=== PATIENT | female | born 1960 | race Caucasian/White ===

== ENCOUNTER → 2021-07-28 | Outpatient (CLI) | payer OTHER ==
--- NOTE | 2021-07-28 15:15 | 2DMMODE ---
[facility] [place] [address] 2 D/M-MODE ECHOCARDIOGRAM Name: SANJIV ARNETT Room #: REG GUILLE Sarmiento.#: [id number] Admission: 07/28/21 Attend Phys: Mike Herrera MD Discharge: Date of : 64 Report #: [id number] THIS REPORT FOR: cc: Mike Herrera MD, Matthew B. MD Santiago, Patrick MD [facility] ~ APPROVED REPORT Study performed: 07/28/2021 14:39:42 EXAM: Comprehensive 2D, Doppler, and color-flow Echocardiogram Patient Location: Out-Patient Status: routine BSA: 1.67 HR: 66 bpm BP: 120/74 mmHg Rhythm: NSR Other Information Study Quality: Good Indications Mixed hyperlipidemia. 2D Dimensions RVDd: 27.42 mm IVSd: 7.02 (7-11mm) LVOT Diam: 20.02 (18-24mm) LVDd: 51.50 mm PWd: 6.20 (7-11mm) Ascending Ao: 30.69 (22-36mm) LVDs: 35.49 (25-40mm) Left Atrium: 32.03 (27-40mm) Aortic Root: 32.76 mm Volumes Left Atrial Volume (Systole) Single Plane 4CH: 23.75 mL Single Plane 2CH: 32.56 mL LA ESV Index: 18.00 mL/m2 Aortic Valve AoV Peak Aroldo.: 1.16 m/s AO Peak Gr.: 5.41 mmHg LVOT Max P.42 mmHg LVOT Max V: 1.16 m/s DARNELL Vmax: 3.15 cm2 [facility] [address] [place] [address] 2 D/M-MODE ECHOCARDIOGRAM Name: SANJIV ARNETT Room #: REG CL [facility]#: [id number] Admission: 07/28/21 Attend Phys: Mike Herrera, Discharge: Date of : 64 Report #: [id number] Mitral Valve E/A Ratio: 0.8 MV Decel. Time: 320.84 ms MV E Max Aroldo.: 0.61 m/s MV A Aroldo.: 0.74 m/s MV PHT: 93.04 ms IVRT: 117.65 ms Pulmonary Valve PV Peak Aroldo.: 0.86 m/s PV Peak Gr.: 2.97 mmHg Tricuspid Valve TR Peak Aroldo.: 1.72 m/s RAP Estimate: 5.00 mmHg TR Peak Gr.: 12.00 mmHg PA Pressure: 17.00 mmHg Left Ventricle The left ventricle is normal size. There is normal LV segmental wall motion. There is normal left ventricular wall thickness. Left ventricular systolic function is normal. LVEF is 60%. Mild diastolic dysfunction is present (impaired relaxation pattern). Right Ventricle The right ventricle is normal size. The right ventricular systolic function is normal. Atria The left atrium size is normal. The right atrium size is normal. Aortic Valve The aortic valve is normal in structure. No aortic regurgitation is present. There is no aortic valvular stenosis. Mitral Valve The mitral valve is normal in structure. Trace mitral regurgitation. No evidence of mitral valve stenosis. Tricuspid Valve The tricuspid valve is normal in structure. Trace tricuspid regurgitation. Estimated PAP is 17mmHg. Pulmonic Valve The pulmonary valve is normal in structure. Trace pulmonic regurgitation. [facility] [place] [address] 2 D/M-MODE ECHOCARDIOGRAM Name: SANJIV ARNETT Room #: REG [facility].#: [id number] Admission: 07/28/21 Attend Phys: Mike Herrera, Discharge: Date of : 64 Report #: [id number] Great Vessels The aortic root is normal in size. Ascending aorta is not well visualized. IVC is normal in size and collapses >50% with inspiration. Pericardium There is no pericardial effusion. <Conclusion> Normal left ventricle size/wall thickness EF 55-60% Grade 1 diastolic dysfunction Normal right ventricle size/function Normal atrial size Normal aortic/mitral valve structure and function Trace tricuspid valve insufficiency Pulmonary systolic pressure estimated 17 mmHg No pericardial effusion Normal aortic root size <ELECTRONICALLY SIGNED> By: Nicholas Garcia MD, FACC 07/28/21 1515 1515 1515 Nicholas Garcia MD, FACC /INF
== END ==
LOC: CV 11:11
PROVIDERS: ATTEND Internal Medicine
DX: I51.89 Other ill-defined heart diseases (principal); E78.2 Mixed hyperlipidemia